=== PATIENT | male | born 1955 | race Caucasian/White ===

== ENCOUNTER 2018-07-03 04:30 | Inpatient (IN) | payer MEDICARE, OTHER ==
[~2018-07-03] VITALS: Ht 172.7 cm; Wt 65.8 kg
[~2018-07-03 04:30] MED LIST: (None)20 M1 PO; ACET325 PO; ALBU3IS INH; ALBU90OI INH; ALLO100 PO; AMLO10 PO; ASPI325; AZIT250 PO; Allopurinol100 MG PO; Aspir 8181 MG PO; BUME1 PO; COMBIVENT RESPIM4 GM INH; Coreg12.5 MG PO; DIGO.125 PO; DOXY100 PO; FLUSAL2505 INH; FLUT1DIS8 INH; FORM12IH IH; FURO20 PO; GUAI600T33; GUAI600T33 PO; HYDR1TAB94 PO; ISOMON20 PO; Keflex500 MG PO; LISI20 PO; LOSA25 PO; LOW DOSE ASPIRI81 MG PO; METR500 PO; OMEP20ER PO; Omeprazole20 M1 PO; PARI1 PO; POTA10T PO; PRED10 PO; PRED20; PROCODE120; Pepcid40 MG PO; Prinivil10 MG PO; QVAR7.3 G1 IH; SPIR25 PO; TIOT18 IH; TIOT18 INH; WARF6 PO; XARELTO15 MG PO; [UNRECOGNIZED DRUG - REMARK]
[2018-07-03 04:42] LABS: PO2 Arterial 146 mmHg (80-100)
[2018-07-03 04:43] LABS: PCO2 Arterial 71.8 mmHg (35-45); pH Blood Arterial 7.29 (7.35-7.45)
[2018-07-03 04:44] LABS: BASOPHILS ABSOLUTE AUTO 0.07 K/mm3 (0.00-0.23); BASOPHILS PERCENT AUTO 1 % (0-2); EOSINOPHILS ABSOLUTE AUTO 0.34 K/mm3 (0.00-0.68); EOSINOPHILS PERCENT AUTO 3 % (0-6); Hematocrit 45.1 % (37.0-53.0); Hemoglobin 14.9 g/dL (13.5-17.5); IMMATURE GRAN ABSOLUTE AUTO 0.04 K/mm3 (0.00-0.10); IMMATURE GRAN PERCENT AUTO 0 % (0-1); LYMPHOCYTES ABSOLUTE AUTO 1.26 K/mm3 (0.84-5.20); LYMPHOCYTES PERCENT AUTO 12 % (21-46); MONOCYTES PERCENT AUTO 12 % (4-13); Mean Corpuscular HGB 33.2 pg (26.0-34.0); Mean Corpuscular Volume 100 fL (80-100); Mean Platelet Volume 9.6 fL (9.1-12.4); NEUTROPHILS ABSOLUTE AUTO 7.93 K/mm3 (1.96-9.15); NEUTROPHILS PERCENT AUTO 73 % (41-73); Platelet Count 235 K/mm3 (150-400); RDW Coefficient Variation 12.9 % (11.7-14.2); RDW Standard Deviation 48.5 fL (35.1-46.3); Red Blood Cell Count 4.49 M/mm3 (4.30-5.90); White Blood Cell Count 10.94 K/mm3 (4.00-11.30)
[2018-07-03 05:05] LABS: Alanine Aminotransfer (ALT/SGP 26 U/L (12-78); Albumin, Blood 3.3 g/dL (3.4-5.0); Albumin/Globulin Ratio 0.8 (0.8-1.8); Alk Phos 84 U/L (50-136); Anion Gap 6 mmol/L (6-16); Aspartate Aminotrans (AST/SGOT 27 U/L (12-37); Bilirubin, Total 0.4 mg/dL (0.1-1.0); Blood Urea Nitrogen 26 mg/dL (8-24); Bun/Creatinine Ratio 24.1 (12.0-20.0); CO2, Blood 30 mmol/L (21-32); Calcium, Blood 8.3 mg/dL (8.5-10.1); Chloride, Blood 96 mmol/L (98-108); Creatinine, Blood 1.08 mg/dL (0.60-1.20); Globulin, Blood 4.3 g/dL (2.2-4.0); Glomerular Filtration Rate >60 (60-); Glucose, Blood 122 mg/dL (70-99); Potassium, Blood 4.4 mmol/L (3.5-5.5); Sodium, Blood 132 mmol/L (136-145); Total Protein, Blood 7.6 g/dL (6.4-8.2); Troponin I <0.015 ng/mL (0.000-0.040)
[2018-07-03] MEDS ORDERED: PRED5 PO (16:18)
[2018-07-03] MEDS ORDERED: Vitamin D400 UNI2 PO (16:19)
[2018-07-03] MEDS ORDERED: AMLO5 PO (16:21)
[2018-07-03] MEDS ORDERED: Bisoprolol Fumar5 MG PO (16:22)
[2018-07-03] MEDS ORDERED: ALBU90OI INH (16:36)
[2018-07-03] MEDS ORDERED: HYDCHL12.5 PO (16:37)
[2018-07-03 17:48] LABS: PCO2 Arterial 58.5 mmHg (35-45); PO2 Arterial 98.1 mmHg (80-100); pH Blood Arterial 7.33 (7.35-7.45)
--- NOTE | 2018-07-03 19:32 | NUR ---
Shift Summary Asssumed care of pt at approx 1700. VSS. In no apparent sign of distress. Pt is A&Ox4. See admission assessment for detailed assessment. Pt on 4L o2 NC upon arrival. Refuses BiPAP at this time. SR on tele. C/o some sob with activity. Pt up to shower and tolerated this activity well. Currently resting in bed with call light within reach. Denies any further questions, complaints or requests at this time. Will continue to monitor until report is given to jamaal TEMPLE.
[2018-07-03 21:13] LABS: Adenovirus Not Detected (NOT DETECT); Coronavirus 229E Not Detected (NOT DETECT); Coronavirus HKU1 Not Detected (NOT DETECT); Coronavirus NL63 Not Detected (NOT DETECT); Coronavirus OC43 Not Detected (NOT DETECT); Human Metapneumovirus Not Detected (NOT DETECT); Human Rhinovirus/Enterovirus Not Detected (NOT DETECT); Influenza A Not Detected (NOT DETECT); Influenza A/2009-H1 Not Detected (NOT DETECT); Influenza A/H1 Not Detected (NOT DETECT); Influenza A/H3 Not Detected (NOT DETECT); Influenza B Not Detected (NOT DETECT); Parainfluenza Virus 1 Not Detected (NOT DETECT); Parainfluenza Virus 2 Not Detected (NOT DETECT)
[2018-07-03 21:14] LABS: Bordetella pertussis Not Detected (NOT DETECT); Chlamydophila pneumoniae Not Detected (NOT DETECT); Mycoplasma pneumoniae Not Detected (NOT DETECT); Parainfluenza Virus 3 Not Detected (NOT DETECT); Parainfluenza Virus 4 Not Detected (NOT DETECT); Respiratory Syncytial Virus Not Detected (NOT DETECT)
--- NOTE | 2018-07-03 22:45 | NUR ---
ASSUMED CARE OF PATIENT AT APPROXIMATELY 1910 FROM [facility] Pal RN. PATIENT ALERT AND ORIENTED X4; INDEPENDENT IN ROOM; PATIENT HAS DOG IN ROOM; BARK OCCASIONALLY. PATIENT WAS IN SHOWER AT SHIFT CHANGE. NSR ON TELE; PACER; OXYGEN SATURATION ABOVE 90% ON 2-3LPM VIA NC; CURRENTLY ON BIPAP. PATIENT EXPRESSED INTEREST IN A HOME BIPAP TO RT. PATIENT REPORTS PAIN IN LOWER BACK FROM SPINAL STENOSIS; REPORTS TAKES MEDS AT HOME; STATES NOT PRESCRIBED PAIN MEDS; REFUSED TYLENOL; STATES BAD FOR HIS LIVER. PATIENT DENEIS NUMBNESS, TINGLING, DIZZINESS AND NAUSESA. PIV S/L. PATIENT CURRENTLY SLEEPING IN BED; CALL LIGHT IN REACH; BED IN LOWEST POSISTION; WILL CONTINUE TO MONITOR AND ASSESS UNTIL END OF SHIFT.
[2018-07-04 04:01] LABS: Hematocrit 40.6 % (37.0-53.0); Hemoglobin 13.3 g/dL (13.5-17.5); Mean Corpuscular HGB 32.4 pg (26.0-34.0); Mean Corpuscular HGB Conc 32.8 g/dL (31.5-36.5); Mean Corpuscular Volume 99 fL (80-100); Platelet Count 224 K/mm3 (150-400); RDW Standard Deviation 47.1 fL (35.1-46.3); Red Blood Cell Count 4.11 M/mm3 (4.30-5.90); White Blood Cell Count 15.47 K/mm3 (4.00-11.30)
[2018-07-04 04:23] LABS: Alanine Aminotransfer (ALT/SGP 22 U/L (12-78); Albumin, Blood 2.9 g/dL (3.4-5.0); Albumin/Globulin Ratio 0.8 (0.8-1.8); Alk Phos 77 U/L (50-136); Anion Gap 6 mmol/L (6-16); Aspartate Aminotrans (AST/SGOT 17 U/L (12-37); Bilirubin, Total 0.3 mg/dL (0.1-1.0); Blood Urea Nitrogen 37 mg/dL (8-24); Bun/Creatinine Ratio 31.9 (12.0-20.0); CO2, Blood 30 mmol/L (21-32); Calcium, Blood 8.3 mg/dL (8.5-10.1); Chloride, Blood 100 mmol/L (98-108); Creatinine, Blood 1.16 mg/dL (0.60-1.20); Globulin, Blood 3.8 g/dL (2.2-4.0); Glomerular Filtration Rate >60 (60-); Glucose, Blood 124 mg/dL (70-99); Potassium, Blood 4.8 mmol/L (3.5-5.5); Sodium, Blood 136 mmol/L (136-145); Total Protein, Blood 6.7 g/dL (6.4-8.2)
--- NOTE | 2018-07-04 09:00 | NUR ---
Assumed Care: Assumed care of pt at approx 0700. VSS. In no apparent sign of distress. Pt is A&Ox4. Calls appropriately. Repositions self. C/o pain in back and abd. Pt was wearing BiPAP upon entering room, but removed to put on 3L O2 NC to eat. See shift assessment for detailed assessment. BiPAP settings at 12/6, 12 and 30% FiO2. C/o dyspnea with exertion. Pt currently resting in bed with call light within reach. Denies any further questions, complaints or requests at this time. Will continue to monitor.
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
--- NOTE | 2018-07-04 16:57 | NUR ---
Shift Summary No acute changes since initial shift assessment. VSS. In no apparent sign of distress. Pt has remained A&Ox4. Calls appropriately. Independent in the room. Denies any acute complaints or requests t/o the shift. Pt has remained on 3L O2 NC and has not worn the BiPAP at all. Pt ambulated in halls today on 4L O2 NC and tolerated well. Pt wondering about being set up for a CPAP or BIPAP at home. Pt currently resting in bed with call light within reach. Denies any further questions, complaints or requests at this time. Pt medical status w/out tele but no bed assignment at this time. Will continue to monitor until report is given to jamaal TEMPLE.
--- NOTE | 2018-07-04 19:45 | NUR ---
[facility] PT RESTING IN ROOM COMFORTABLY AT THIS TIME. PER DAY SHIFT NO ACUTE CHANGES IN STATUS. PT HAS BEEN ON 3L O2 VIA NC T/O DAY. DID NOT WEAR BIPAP TODAY. PT IS INDEPENDENT IN ROOM. PER DAY SHIFT PT HAS CHRONIC BACK PAIN, LIDOCAINE PATCH IN PLACE. PT REPORTS HEAT HELPS PAIN, PT ASKED IF HE WOULD LIKE A K-PAD FOR CONTINUOUS HEAT TO AREA. PT AGREES. K-PAD WILL BE PROVIDED. RESP EVEN UNLBAORE DON 3L NC. SATS >95%. PT HAS "EMOTIONAL SUPPORT" DOG IN ROOM. PER DAY SHIFT DOG HAS CAUSED SOME PROBLEMS WITH BARKING AT STAFF AND NOISE SINCE ADMIT. TODAY DOG HAS SETTLED IN WELL AND HAS NOT BARKED AT STAFF SINCE START OF DAY SHIFT. DOG IS SITTING IN BED W/ PT AT THIS TIME QUIET AND PLEASENT. DOG ALLOWS STAFF TO PET W/O INCIDENT. NURSING STATISTICAL PROGRAMMER ANALYST AND SECURITY AWARE OF SITUATION WITH DOG AND PREVIOUS NOISE COMPLAINTS. PT IS MARSH DOG MUST BE CONTROLLED OR MUST BE REMOVED FROM HOSPITAL. CALL LIGHT IS IN REACH. WILL CONT TO MONITOR.
--- NOTE | 2018-07-04 22:30 | NUR ---
TRANSFER OF CARE REPORT CALLED TO MEDICAL FLOOR RN. PT ADVISED OF MOVE TO NEW ROOM. BELONGINSG ALL PACKAGED UP AND SENT WITH PT. KPAD SET UP SENT W. PT. DOG RIDING IN BED W/ PT PLEASENT AFFECT. PT ADVISED ABOUT NEEDING TO ORIENT DOG TO NEW UNIT AND STAFF MEMBERS AND REMAIN IN COMPLIENCE WITH KEEPING DOG UNDER CONTROL AND PLEASET W/ STAFF. NO BELONGINGS LEFT IN ROOM. PT LEFT VIA BED W/ CERTIFIED PEDORTHOTIST
[2018-07-05 05:20] LABS: Hematocrit 40.8 % (37.0-53.0); Hemoglobin 13.2 g/dL (13.5-17.5); Mean Corpuscular HGB 33.2 pg (26.0-34.0); Mean Corpuscular HGB Conc 32.4 g/dL (31.5-36.5); Mean Platelet Volume 9.9 fL (9.1-12.4); Platelet Count 249 K/mm3 (150-400); RDW Coefficient Variation 13.1 % (11.7-14.2); RDW Standard Deviation 50.4 fL (35.1-46.3); Red Blood Cell Count 3.97 M/mm3 (4.30-5.90); White Blood Cell Count 26.56 K/mm3 (4.00-11.30)
[2018-07-05 05:35] LABS: Mean Corpuscular Volume 103 fL (80-100)
--- NOTE | 2018-07-05 07:25 | NUR ---
walking rounds completed with day staff introduced nurse to dog and explained issues, call light in reach, saline locked, 3 L via nc but not using when doing rounds and stats were 93%
--- NOTE | 2018-07-05 10:44 | NUR ---
PT TRANSFER TO ROOM 312 GAVE HANDOFF TO NURSE DUBOSE. REPORTED ON PT'S DIAGNOSES, MEDICATIONS, PLAN FOR DISCHARGE, ORIENTATION, CURRENT STATUS. NURSE DUBOSE HAD NO FURTHER QUESTIONS. PT'S PERSONAL POSSESSIONS AND PET WERE TRANSPORTED WITH PT VIA WHEELCHAIR AND CART, WITH ASSISTANCE FROM NURSE DUBOSE AND COMMAND AND CONTROL. PT WAS TRANSFERED TO ROOM 312 WNL. NURSE DUBOSE HAD NO FURTHER QUESTIONS.
--- NOTE | 2018-07-05 17:18 | NUR ---
SHIFT SUMMARY PATIENT ON 3L NC, BIPAP AT NIGHT, CONT PULSE OX IN PLACE. UP AL IN ROOM, USES W/C TO LEAVE ROOM BUT USES INDEPENDANTLY. CAUTION OF DOG UNATTENDED AT BEDSIDE. FULLY A&O, LIDOCAINE PATCH CAME OFF AT 1700 IN SHOWER.
[2018-07-06 05:16] LABS: BASOPHILS ABSOLUTE AUTO 0.04 K/mm3 (0.00-0.23); BASOPHILS PERCENT AUTO 0 % (0-2); EOSINOPHILS PERCENT AUTO 0 % (0-6); Hemoglobin 14.3 g/dL (13.5-17.5); IMMATURE GRAN ABSOLUTE AUTO 0.39 K/mm3 (0.00-0.10); IMMATURE GRAN PERCENT AUTO 2 % (0-1); LYMPHOCYTES ABSOLUTE AUTO 0.34 K/mm3 (0.84-5.20); LYMPHOCYTES PERCENT AUTO 2 % (21-46); MONOCYTES ABSOLUTE AUTO 0.63 K/mm3 (0.16-1.47); MONOCYTES PERCENT AUTO 3 % (4-13); Mean Corpuscular HGB 33.2 pg (26.0-34.0); Mean Corpuscular HGB Conc 31.8 g/dL (31.5-36.5); Mean Corpuscular Volume 104 fL (80-100); Mean Platelet Volume 10.2 fL (9.1-12.4); NEUTROPHILS ABSOLUTE AUTO 21.95 K/mm3 (1.96-9.15); NEUTROPHILS PERCENT AUTO 94 % (41-73); Platelet Count 256 K/mm3 (150-400); RDW Coefficient Variation 13.2 % (11.7-14.2); RDW Standard Deviation 50.9 fL (35.1-46.3); Red Blood Cell Count 4.31 M/mm3 (4.30-5.90); White Blood Cell Count 23.35 K/mm3 (4.00-11.30)
--- NOTE | 2018-07-06 18:07 | NUR ---
Patient requested a spiritual care visit. Patient shared with me about some deep concerns he has about the people he cares about, about his living situation and his connection to God. I listened empathically, provided pastoral dormitory counselor, companionship and prayer. Patient responded well and was teary eyed during the prayer. Patient expressed gratitude for the visit.
--- NOTE | 2018-07-06 19:36 | NUR ---
SHIFT SUMMARY: NO ACUTE CHANGES TO REPORT THIS SHIFT. PT A&O; IRRITABLE; COOPERATIVE WITH CARE; SPEECH GARBLED. SUPPORT DOG IN ROOM WITH PATIENT. O2 @ 3L VIA NC. IV ABX & IV STEROIDS CONTINUING. REPORT GIVEN TO ONCOMING RN.
[2018-07-07 05:04] LABS: BASOPHILS ABSOLUTE AUTO 0.02 K/mm3 (0.00-0.23); BASOPHILS PERCENT AUTO 0 % (0-2); EOSINOPHILS PERCENT AUTO 0 % (0-6); Hematocrit 43.4 % (37.0-53.0); Hemoglobin 13.5 g/dL (13.5-17.5); IMMATURE GRAN ABSOLUTE AUTO 0.33 K/mm3 (0.00-0.10); IMMATURE GRAN PERCENT AUTO 2 % (0-1); LYMPHOCYTES ABSOLUTE AUTO 0.34 K/mm3 (0.84-5.20); LYMPHOCYTES PERCENT AUTO 2 % (21-46); MONOCYTES ABSOLUTE AUTO 0.61 K/mm3 (0.16-1.47); MONOCYTES PERCENT AUTO 4 % (4-13); Mean Corpuscular HGB 32.6 pg (26.0-34.0); Mean Corpuscular HGB Conc 31.1 g/dL (31.5-36.5); Mean Corpuscular Volume 105 fL (80-100); Mean Platelet Volume 9.6 fL (9.1-12.4); NEUTROPHILS ABSOLUTE AUTO 16.08 K/mm3 (1.96-9.15); NEUTROPHILS PERCENT AUTO 93 % (41-73); Platelet Count 230 K/mm3 (150-400); RDW Coefficient Variation 13.2 % (11.7-14.2); RDW Standard Deviation 51.3 fL (35.1-46.3); Red Blood Cell Count 4.14 M/mm3 (4.30-5.90); White Blood Cell Count 17.38 K/mm3 (4.00-11.30)
[2018-07-07 05:27] LABS: Alanine Aminotransfer (ALT/SGP 37 U/L (12-78); Albumin, Blood 2.6 g/dL (3.4-5.0); Albumin/Globulin Ratio 0.8 (0.8-1.8); Alk Phos 49 U/L (50-136); Anion Gap 0 mmol/L (6-16); Aspartate Aminotrans (AST/SGOT 24 U/L (12-37); Bilirubin, Total 0.3 mg/dL (0.1-1.0); Blood Urea Nitrogen 38 mg/dL (8-24); Bun/Creatinine Ratio 31.4 (12.0-20.0); CO2, Blood 39 mmol/L (21-32); Chloride, Blood 100 mmol/L (98-108); Creatinine, Blood 1.21 mg/dL (0.60-1.20); Globulin, Blood 3.4 g/dL (2.2-4.0); Glomerular Filtration Rate >60 (60-); Glucose, Blood 112 mg/dL (70-99); Potassium, Blood 4.8 mmol/L (3.5-5.5); Sodium, Blood 139 mmol/L (136-145)
--- NOTE | 2018-07-07 10:32 | NUR ---
PATIENT WAS OFFERED A SHOWER AND DECLINED.
--- NOTE | 2018-07-07 17:16 | NUR ---
HE HAS GONE OUTSIDE ONCE WITH HIS THERAPY DOG TODAY. HE HAS DONE BUSINESS ON THE PHONE, ONE CONVERSATION HEARD FROM BEHIND A CLOSED DOOR THIS MORNING. HE SOUNDED UPSET. O2 3L. HE USES ACCESSORY MUSCLES TO BREATHE. SKIN DRY WITH BRUISES AND SCABS. HE IS STILL ON IV STEROID. HE WEARS HIS CONTINUOUS BIOX WHEN HE FEELS LIKE IT. NO CHANGES.
--- NOTE | 2018-07-08 04:41 | NUR ---
SENIOR UNDERWRITER SUMMARY NO ACUTE CHANGES THIS SHIFT. PT AAOX4 AND INDEPENDENT IN ROOM USING WHEELCHAIR. PT GOES OUTSIDE WITH HIS SERVICE DOG. O2 SATS STABLE OVER 90% WHILE ON HOME DOSE OF O2 AND CPAP WHILE SLEEPING. PT DENIES PAIN, N/V. VSS, WILL CONTINUE TO MONITOR.
[2018-07-08 08:36] LABS: BASOPHILS ABSOLUTE AUTO 0.03 K/mm3 (0.00-0.23); BASOPHILS PERCENT AUTO 0 % (0-2); EOSINOPHILS PERCENT AUTO 0 % (0-6); Hematocrit 45.6 % (37.0-53.0); Hemoglobin 14.2 g/dL (13.5-17.5); IMMATURE GRAN ABSOLUTE AUTO 0.48 K/mm3 (0.00-0.10); IMMATURE GRAN PERCENT AUTO 3 % (0-1); LYMPHOCYTES PERCENT AUTO 2 % (21-46); MONOCYTES ABSOLUTE AUTO 1.19 K/mm3 (0.16-1.47); MONOCYTES PERCENT AUTO 7 % (4-13); Mean Corpuscular HGB 32.1 pg (26.0-34.0); Mean Corpuscular HGB Conc 31.1 g/dL (31.5-36.5); Mean Corpuscular Volume 103 fL (80-100); Mean Platelet Volume 9.8 fL (9.1-12.4); NEUTROPHILS ABSOLUTE AUTO 15.74 K/mm3 (1.96-9.15); NEUTROPHILS PERCENT AUTO 89 % (41-73); Platelet Count 248 K/mm3 (150-400); RDW Standard Deviation 49.9 fL (35.1-46.3); Red Blood Cell Count 4.43 M/mm3 (4.30-5.90); White Blood Cell Count 17.74 K/mm3 (4.00-11.30)
[2018-07-08 08:50] LABS: Anion Gap 2 mmol/L (6-16); Blood Urea Nitrogen 39 mg/dL (8-24); Bun/Creatinine Ratio 37.9 (12.0-20.0); CO2, Blood 36 mmol/L (21-32); Calcium, Blood 7.9 mg/dL (8.5-10.1); Chloride, Blood 99 mmol/L (98-108); Creatinine, Blood 1.03 mg/dL (0.60-1.20); Glomerular Filtration Rate >60 (60-); Glucose, Blood 156 mg/dL (70-99); Potassium, Blood 4.5 mmol/L (3.5-5.5); Sodium, Blood 137 mmol/L (136-145)
--- NOTE | 2018-07-08 11:30 | NUR ---
Spiritual care visit provided. Patient had a visitor, Bonifacio, that patient introduced me to so I cut my visit short so they had time to talk. I simply prayed for patient and left. Patient thanked me for the visit.
--- NOTE | 2018-07-08 13:59 | NUR ---
HE HAS HAD A VISITOR X2 DROP THINGS OFF FOR HIM. HE HAS TAKEN HIS DOG OUTSIDE X1 TODAY. HE THOUGHT HE WANTED TO SHOWER BUT CHANGED HIS MIND. NO CHANGES IN HIS MEDICAL CONDITION. JUST ROUNDED.
--- NOTE | 2018-07-08 15:43 | NUR ---
RESTING COMFORTABLY IN BED. DENIES ANY NEEDS AT THIS TIME.
--- NOTE | 2018-07-09 04:26 | NUR ---
SHIFT SUMMARY PT HAS DENIED NEEDS T/O THE NIGHT. INDEPENDENT IN THE ROOM. PT DOG AT BEDSIDE T/O SHIFT. SATS WNL ON 3L O2. LIDOCAINE PATCH FOR CHRONIC LOW BACK PAIN. RESTFUL NIGHT. ASSESSMENT UNCHANGED. WILL CONTINUE TO MONITOR AND REPORT TO ONCOMING RN.
[2018-07-09 05:07] LABS: BASOPHILS ABSOLUTE AUTO 0.06 K/mm3 (0.00-0.23); BASOPHILS PERCENT AUTO 0 % (0-2); EOSINOPHILS PERCENT AUTO 0 % (0-6); Hematocrit 44.1 % (37.0-53.0); Hemoglobin 13.9 g/dL (13.5-17.5); IMMATURE GRAN ABSOLUTE AUTO 0.51 K/mm3 (0.00-0.10); IMMATURE GRAN PERCENT AUTO 3 % (0-1); LYMPHOCYTES ABSOLUTE AUTO 0.54 K/mm3 (0.84-5.20); LYMPHOCYTES PERCENT AUTO 3 % (21-46); MONOCYTES ABSOLUTE AUTO 1.73 K/mm3 (0.16-1.47); MONOCYTES PERCENT AUTO 9 % (4-13); Mean Corpuscular HGB 33.3 pg (26.0-34.0); Mean Corpuscular HGB Conc 31.5 g/dL (31.5-36.5); Mean Platelet Volume 9.6 fL (9.1-12.4); NEUTROPHILS ABSOLUTE AUTO 16.59 K/mm3 (1.96-9.15); NEUTROPHILS PERCENT AUTO 85 % (41-73); NRBC ABSOLUTE 0.02 K/mm3 (0.00-0.02); NRBC Auto 0.1 /100 WBC (0.0-0.2); Platelet Count 249 K/mm3 (150-400); RDW Coefficient Variation 13.1 % (11.7-14.2); RDW Standard Deviation 51.6 fL (35.1-46.3); Red Blood Cell Count 4.18 M/mm3 (4.30-5.90); White Blood Cell Count 19.43 K/mm3 (4.00-11.30)
[2018-07-09 05:10] LABS: Mean Corpuscular Volume 106 fL (80-100)
[2018-07-09 05:40] LABS: Anion Gap 3 mmol/L (6-16); Blood Urea Nitrogen 37 mg/dL (8-24); Bun/Creatinine Ratio 30.8 (12.0-20.0); CO2, Blood 38 mmol/L (21-32); Calcium, Blood 7.9 mg/dL (8.5-10.1); Chloride, Blood 100 mmol/L (98-108); Glomerular Filtration Rate >60 (60-); Glucose, Blood 115 mg/dL (70-99); Potassium, Blood 4.8 mmol/L (3.5-5.5); Sodium, Blood 141 mmol/L (136-145)
--- NOTE | 2018-07-09 18:13 | NUR ---
SHIFT SUMMARY- PT C/O BACK PAIN. MEDS GIVEN PER EMAR. PT REPORTS MILD SOB. DYSPNEA UPON EXERTION. 93% ON 3L O2 NC. PT INDEPENDENT IN ROOM WITH WHEELCHAIR. NO OTHER SIGNIFICANT CHANGES THIS SHIFT.
--- NOTE | 2018-07-10 04:35 | NUR ---
SHIFT SUMMARY PT HAS SLEPT OFF AND ON T/O SHIFT. PT HAS HAD NO ACUTE ISSUES NOTED. PT IS CURRENTLY WATCHING TV AND BREATHING EASY. CALL LIGHT IN REACH.
[2018-07-10 05:19] LABS: BASOPHILS ABSOLUTE AUTO 0.07 K/mm3 (0.00-0.23); BASOPHILS PERCENT AUTO 0 % (0-2); EOSINOPHILS ABSOLUTE AUTO 0.01 K/mm3 (0.00-0.68); EOSINOPHILS PERCENT AUTO 0 % (0-6); Hematocrit 44.4 % (37.0-53.0); Hemoglobin 13.7 g/dL (13.5-17.5); IMMATURE GRAN ABSOLUTE AUTO 0.87 K/mm3 (0.00-0.10); IMMATURE GRAN PERCENT AUTO 5 % (0-1); LYMPHOCYTES ABSOLUTE AUTO 1.16 K/mm3 (0.84-5.20); LYMPHOCYTES PERCENT AUTO 6 % (21-46); MONOCYTES ABSOLUTE AUTO 1.52 K/mm3 (0.16-1.47); MONOCYTES PERCENT AUTO 8 % (4-13); Mean Corpuscular HGB 32.3 pg (26.0-34.0); Mean Corpuscular HGB Conc 30.9 g/dL (31.5-36.5); Mean Corpuscular Volume 105 fL (80-100); Mean Platelet Volume 9.6 fL (9.1-12.4); NEUTROPHILS ABSOLUTE AUTO 14.74 K/mm3 (1.96-9.15); NEUTROPHILS PERCENT AUTO 80 % (41-73); Platelet Count 232 K/mm3 (150-400); RDW Coefficient Variation 13.2 % (11.7-14.2); RDW Standard Deviation 50.8 fL (35.1-46.3); Red Blood Cell Count 4.24 M/mm3 (4.30-5.90); White Blood Cell Count 18.37 K/mm3 (4.00-11.30)
[2018-07-10 05:32] LABS: Anion Gap 2 mmol/L (6-16); Blood Urea Nitrogen 38 mg/dL (8-24); Bun/Creatinine Ratio 35.2 (12.0-20.0); CO2, Blood 40 mmol/L (21-32); Calcium, Blood 7.9 mg/dL (8.5-10.1); Chloride, Blood 96 mmol/L (98-108); Creatinine, Blood 1.08 mg/dL (0.60-1.20); Glomerular Filtration Rate >60 (60-); Glucose, Blood 123 mg/dL (70-99); Potassium, Blood 4.8 mmol/L (3.5-5.5); Sodium, Blood 138 mmol/L (136-145)
[2018-07-10] MEDS ORDERED: Prednisone20 MG PO (18:12)
[2018-07-10] MEDS ORDERED: CARV25 PO (18:14)
[2018-07-10] MEDS ORDERED: AZIT500 PO (18:14)
[2018-07-10] MEDS ORDERED: LIDO700A20 TOP (18:15)
[2018-07-10] MEDS ORDERED: SPIR25 PO (18:15)
[2018-07-10] MEDS ORDERED: GUAI600T33 PO (18:15)
--- NOTE | 2018-07-10 18:46 | NUR ---
SHIFT SUMMARY- D/C COMPLETE. MEDS FAXED TO [facility] [place]. WINDY MENJIVAR GOING OVER D/C INSTRUCTIONS WITH PT. PT REPORTS HE IS WAITING FOR HIS RIDE. NO OTHER SIGNIFICANT CHANGES THIS SHIFT.
== END 2018-07-10 19:15 | disposition home or self-care (01) | DRG 189 ==
LOC: ER 04:30 → MEDS 05:46 → ERHOLD 05:46 → PCU 16:31 → MEDS 07-04 22:57 → ENPENDDIS 07-10 11:00 → MEDS 07-10 19:15
PROVIDERS: Emergency Medicine; Internal Medicine; ADMIT Internal Medicine
PROC: 5A09457 Assistance with Respiratory Ventilation, 24-96 Consecutive Hours, Continuous Positive Airway Pressure (ICD-10-PCS; principal; 2018-07-03)
DX: J96.22 Acute and chronic respiratory failure with hypercapnia (principal); J44.1 Chronic obstructive pulmonary disease with (acute) exacerbation; K22.10 Ulcer of esophagus without bleeding; I13.0 Hypertensive heart and chronic kidney disease with heart failure and stage 1 through stage 4 chronic kidney disease, or unspecified chronic kidney disease; I50.22 Chronic systolic (congestive) heart failure; I42.9 Cardiomyopathy, unspecified; N18.1 Chronic kidney disease, stage 1; Z99.81 Dependence on supplemental oxygen
CPT/HCPCS: 36415; 36600; 71045; 80048; 80053; 82803; 83880; 84484; 85025; 85027; 87486; 87581; 87633; 87798; 93005; 93010; 94640; 94644; 94660; 94762; 96374; 99285-25; J0696; J1650; J2920; J2930

== ENCOUNTER → 2019-12-02 | Outpatient (CLI) | payer MEDICARE, OTHER ==
[~2019-12-02] MED LIST changes: +AMLO5 PO; +AZIT500 PO; +Bisoprolol Fumar5 MG PO; +CARV25 PO; +HYDCHL12.5 PO; +LIDO700A20 TOP; +PRED5 PO; +Prednisone20 MG PO; +Vitamin D400 UNI2 PO
[2019-12-02 14:19] LABS: Appearance, Urine Clear (Clear); Bilirubin, Urine Neg (Neg); Blood, Urine Neg (Neg); Color, Urine Yellow (P-Yellow); Glucose Qualitative, Urine Neg (Neg); Ketones, Urine Neg (Neg); Leukocyte Esterase, Urine Neg (Neg); Nitrite, Urine Neg (Neg); Protein, Urine Neg (Neg); Specific Gravity, Urine 1.015 (1.003-1.022); Urobilinogen, Urine NORM (Normal)
== END ==
LOC: LAB SHORT 13:00 → LAB 13:00
PROVIDERS: Internal Medicine
DX: N18.3 Chronic kidney disease, stage 3 (moderate) (principal)
CPT/HCPCS: 81003; 82570; 84156